=== PATIENT | male | born 1990 | race Caucasian/White ===

== ENCOUNTER 2022-07-02 18:28 | Emergency (ER) | payer OTHER, SELFPAY ==
--- NOTE | 2022-07-02 18:48 | ED.URI ---
HPI - URI/Sore Throat General Chief Complaint: Headache Stated Complaint: headache, fever Time Seen by Provider: 07/02/22 19:10 Source: patient Mode of arrival: ambulatory History of Present Illness HPI Narrative: 32-year-old male with past medical history migraines presenting to the ED complaining frontal/right sided behind eye headache x2 days. Headache not maximal at onset. Son with similar symptoms. Took Tylenol without relief. Denies neck pain, vision change/loss, CP/SOB, cough, abdominal pain, nausea/vomiting, weakness, numbness, tingling Onset (ago): day(s) Related Data Previous Rx's Medication Instructions Recorded umusgnylhi-atsgtzsbauirm-khcriazd 1 cap PO Q4-6H PRN headache #14 07/02/22 50 mg-300 mg-40 mg capsule caps (Fioricet) oseltamivir 75 mg capsule (Tamiflu) 75 mg PO Q12H 5 days #10 caps 07/02/22 Allergies Allergy/AdvReac Type Severity Reaction Status Date / Time No Known Allergies Allergy Verified 07/02/22 18:49 Review of Systems Review of Systems: Constitutional: No Fever, No Chills, No Fatigue, No Malaise ENT/Mouth: No Ear Pain, No Nasal Congestion, No Sinus Pain, No Hoarseness, No sore throat, No Rhinorrhea, No Swallowing Difficulty Eyes: No Eye Pain, No Swelling, No Redness, No Discharge, No Vision Changes Cardiovascular: No Chest Pain, No SOB, No Edema, No Palpitations Respiratory: No Cough, No Sputum, No Wheezing, No Smoke Exposure, No Dyspnea Gastrointestinal: No Nausea, No Vomiting, No Diarrhea, No Constipation, No Abdominal pain Genitourinary: No irregular bleeding, No Dysuria, No Urinary Frequency, No Hematuria, No Urinary Incontinence/retention Musculoskeletal: No joint pain, No Myalgias, No Joint Swelling Skin: No Skin Lesions, No rash Neuro: No Weakness, No Numbness, No Paresthesias, No Loss of Consciousness, No Dizziness, + Headache Yes all other systems are reviewed and are negative Constitutional: Constitutional: Reports as per [facility] Past Medical History Attestation statement: The following information was validated with the patient. Social History Social History Advance Directives: No Advance Directives Information Provided: No Physical Exam Vital Signs: Vital Signs: Last Vital Signs Temp 99.5 F 07/02/22 20:03 Pulse 91 07/02/22 20:03 Resp 16 07/02/22 20:03 BP 130/77 07/02/22 20:03 Pulse Ox 96 07/02/22 20:03 O2 Del Method 07/02/22 20:03 BMI result Body Mass Index 20.7 Const: General: cooperative, healthy appearing, no acute distress, alert, awake and Physically active Orientation/consciousness: patient oriented x3 Limitations: no limitations HEENT: Head: Yes normal to inspection and Yes atraumatic Ears: hearing grossly normal bilaterally, TM's normal bilaterally and mastoids normal General nose exam: Normal external nose present Face and sinus: Yes normal facial exam Throat: Yes posterior oropharynx normal, Yes tonsils normal, Yes uvula midline, No abnormal tonsil, No peritonsillar mass and No uvular edema Eyes: General: appearance normal, both eyes and all related structures EOM: EOMs intact bilaterally Neck: Neck: Yes normal visual inspection, Yes full ROM, Yes no lymphadenopathy and Yes no meningeal signs Resp: Effort & Inspection: normal respiratory effort and no respiratory distress Auscultation: clear to auscultation bilaterally, no crackles, no rales, no rhonchi and no wheezes Cardio: Rate: regular rate Heart sounds: S1 normal heart sound present and S2 normal heart sound present Skin: Rashes: no rashes Wounds: no wounds Neuro: General: patient oriented x3, tone normal and no meningeal signs Gait exam (Neuro): Normal gait present Extrem: General: Yes normal to inspection Course Course Course Narrative: RME--32yo M c/o frontal and right sided SIDDIQUI since last night. SIDDIQUI not maximal at onset. Took Tylenol without relief COVID/Flu/RSV & PO Fioricet and SL zofran ordered in triage -2016--influenza a positive > on re-evaluation patient reports mild symptomatic improvement Results discussed with patient including worrisome signs and symptoms and strict return precautions, and when to return to the emergency department. They verbalized understanding and feel safe for discharge at this time. Medications Administered Discontinued Medications Generic Name Dose Route Start Last Admin Trade Name Freq PRN Reason Stop Dose Admin Acetaminophen/Butalbital/Caffeine 1 tab 07/02/22 18:49 07/02/22 18:55 Butalb/Acetamin/Caff 50/325/40 Tablet PO 07/02/22 18:50 1 tab ONCE ONE Administration Ibuprofen 600 mg 07/02/22 19:17 07/02/22 19:26 Ibuprofen 600 Mg Tablet PO 07/02/22 19:18 600 mg ONCE ONE Administration Ondansetron HCl 4 mg 07/02/22 18:49 07/02/22 18:55 Ondansetron Odt 4 Mg Tab.Rapdis TRANSLINGU 07/02/22 18:50 4 mg ONCE ONE Administration MDM - URI/Sore Throat MDM Narrative Medical decision making narrative: 32-year-old male with past medical history migraines presenting to the ED complaining frontal/right sided behind eye headache x2 days. On exam low-grade temp 99.3 degrees, NAD, nontoxic appearing, no meningeal signs, no focal neuro deficits. Concern for viral illness vs migraine headache. Low suspicion for meningitis/encephalitis, CVT, SAH Plan: PO Fioricet, COVID-19/influenza/RSV testing Differential Diagnosis Differential diagnosis: Likely upper respiratory infection, viral infection, bronchitis, influenza and pharyngitis Medical Records Attestation: I reviewed the patient's medical records. Lab Data Attestation: I reviewed the patient's lab results. Labs: Lab Results 07/02/22 Range/Units 18:52 Influenza Type A (PCR) POSITIVE A (Negative) Influenza Type B (PCR) NEGATIVE (Negative) RSV RNA Qual (PCR) NEGATIVE (Negative) SARS-CoV-2 RNA (RT-PCR) NEGATIVE (Negative) Discharge Plan Discharge Clinical Impression: Influenza A Patient Disposition: Home, Self-Care Instructions: Influenza (ED) Additional Instructions: You have influenza A. Tamiflu is an antiviral medication, take as as prescribed. Continue to take Tylenol and Motrin as needed for fever/headache. Additionally Fioricet as a headache medication. Be aware Fioricet has Tylenol mixed in do not exceed 4 g of Tylenol in 1 day If her symptoms persist or worsening of fever unresolved medications, develops shortness of breath or chest pain, persistent or worsening headache return to the emergency department Tiene influenza A. Tamiflu es un medicamento antiviral, t?mcmillan seg?n lo prescrito. Contin?e tomando Tylenol y Motrin seg?n sea necesario para la fiebre o el dolor de stephanie. Adem?s, Fioricet angle medicamento para el dolor de stephanie. Tenga en cuenta que Fioricet tiene Tylenol mezclado, no exceda los 4 g de Tylenol en 1 d?a Si los s?ntomas persisten o el empeoramiento de la fiebre no se resolvi? con los medicamentos, desarrolla dificultad para respirar o dolor en el pecho, dolor de stephanie persistente o que empeora, regrese al departamento de emergencias. Prescriptions: New oseltamivir [Tamiflu] 75 mg capsule 75 mg PO Q12H 5 Days Qty: 10 0RF rdopwqqsor-yvipkkonkbkst-lvzu [Fioricet] 50-300-40 mg capsule 1 cap PO Q4-6H PRN (Reason: headache) Qty: 14 0RF Referrals: Physician,None [Primary Care Provider] - 5 days Stand Alone Forms: Work/School Release Print Language: Maori
[2022-07-02 18:51] VITALS: BP 128/87; PULSE 98; RESP 18; TEMP 37.4; O2SAT 96; BMI 20.7
[2022-07-02] MEDS: Ondansetron ODT 4 MG TAB.RAPDIS TRANSLINGU (18:55)
[2022-07-02] MEDS: Butalb/Acetamin/Caff 50/325/40 TABLET 1 TAB PO (18:55)
[2022-07-02] MEDS: Ibuprofen 600 MG TABLET PO (19:26)
[2022-07-02 19:44] LABS: Influenza A PCR POSITIVE (Negative); Influenza B PCR NEGATIVE (Negative); Resp Syncy Virus RNA Qual PCR NEGATIVE (Negative); SARS COV2 PCR INHOUSE NEGATIVE (Negative)
[2022-07-02 20:03] VITALS: BP 130/77; PULSE 91; RESP 16; TEMP 37.5; O2SAT 96
--- NOTE | 2022-07-02 20:29 | PC.NURSE ---
patient a&ox3, states he still has a headache but it has gotten a little better with the medication that was given to him, the provider is at bedside speaking with the patient, will continue to monitor
== END 2022-07-02 22:14 | disposition home or self-care (01) ==
PROVIDERS: Physician Assistant; Emergency Provider Internal Medicine
DX: J10.1 Influenza due to other identified influenza virus with other respiratory manifestations (principal); R51.9 Headache, unspecified; R50.9 Fever, unspecified; Z20.822 Contact with and (suspected) exposure to COVID-19
CPT/HCPCS: 0241U; 99283

== ENCOUNTER 2022-07-30 17:35 | Emergency (ER) | payer OTHER, SELFPAY ==
[2022-07-30 18:51] VITALS: BP 113/55; PULSE 65; RESP 16; TEMP 36.7; O2SAT 100; BMI 20.4
--- NOTE | 2022-07-30 18:53 | ED.EYEPROB ---
HPI - Eye Problem General Chief complaint: Eye Problems <APRIL Hartmann Last Filed: 07/30/22 18:54> Stated complaint: eye discomfort <APRIL Hartmann Last Filed: 07/30/22 18:54> Time Seen by Provider: 07/30/22 20:40 <APRIL Hartmann Last Filed: 07/30/22 18:54> Source: patient <APRIL Richardson Last Filed: 07/31/22 01:39> Mode of arrival: ambulatory <APRIL Richardson Last Filed: 07/31/22 01:39> Limitations: no limitations <APRIL Richardson Last Filed: 07/31/22 01:39> History of Present Illness HPI Narrative: Patient is a 32 year old assigned male at with no reported medical history presenting to the emergency department today with left eye pain. Patient states that he was working with metal yesterday and he thinks something bounced up and got in his left eye. Patient states that he rinsed them out but now he is still having left eye pain. Patient denies any dizziness, lightheadedness, abdominal pain, nausea, vomiting, fever, chills, blurry vision, double vision, loss of vision, chest pain, difficulty breathing, shortness of breath, back pain, night sweats, pain with urination, increased urinary frequency, increased urinary urgency, blood in his urine or stool, syncope or a near syncopal episode, bowel incontinence, bladder incontinence, bowel retention, bladder retention, or any other complaints at this time. <APRIL Richardson - Last Filed: 07/31/22 01:39> MD chief complaint: eye pain <APRIL Richardson Last Filed: 07/31/22 01:39> Onset (ago): day(s) (1) <APRIL Richardson Last Filed: 07/31/22 01:39> Duration: constant <APRIL Richardson Last Filed: 07/31/22 01:39> Location: left eye <APRIL Richardson Last Filed: 07/31/22 01:39> Eye Symptoms: foreign body sensation <APRIL Richardson Last Filed: 07/31/22 01:39> Severity: mild <APRIL Richardson Last Filed: 07/31/22 01:39> Severity scale (1-10): 2 <APRIL Richardson Last Filed: 07/31/22 01:39> Associated symptoms: none <APRIL Richardson Last Filed: 07/31/22 01:39> Treatments Prior to Arrival: irrigated eye <APRIL Richardson Last Filed: 07/31/22 01:39> Related Data Patient tetanus UTD: No <APRIL Richardson - Last Filed: 07/31/22 01:39> Home medications: Previous Rx's Medication Instructions Recorded jgbcamnwic-evjjnewuzxaer-wobrzatg 1 cap PO Q4-6H PRN headache #14 07/02/22 50 mg-300 mg-40 mg capsule caps (Fioricet) oseltamivir 75 mg capsule (Tamiflu) 75 mg PO Q12H 5 days #10 caps 07/02/22 erythromycin 5 mg/gram (0.5 %) eye 0.5 inch ophthalmic (eye) Q4H #3.5 07/30/22 ointment grams <APRIL Hartmann - Last Filed: 07/30/22 18:54> Allergies/adverse reactions: Allergies Allergy/AdvReac Type Severity Reaction Status Date / Time No Known Allergies Allergy Verified 07/02/22 18:49 <APRIL Hartmann - Last Filed: 07/30/22 18:54> Review of Systems Constitutional: Constitutional: Reports no additional constitutional complaints, Denies chills, Denies fever(s) and Denies night sweats <APRIL Richardson Last Filed: 07/31/22 01:39> Eyes: Eyes: Reports no additional eye complaints, Denies blurry vision, Denies change in vision, Denies diplopia, Denies eye discharge, Reports irritation, Denies loss of vision and Reports eye pain <APRIL Richardson Last Filed: 07/31/22 01:39> ENT: Denies dizziness <APRIL Richardson Last Filed: 07/31/22 01:39> Cardiovascular: Cardiovascular: Reports no additional cardiovascular complaints, Denies chest pain, Denies lightheadedness, Denies Loss of Consciousness and Denies dyspnea <APRIL Richardson - Last Filed: 07/31/22 01:39> Respiratory: Respiratory: Reports no additional respiratory complaints and Denies dyspnea <APRIL Richardson Last Filed: 07/31/22 01:39> Gastrointestinal: Gastrointestinal: Reports no additional gastrointestinal complaints, Denies abdominal pain, Denies melena, Denies hematochezia, Denies change in bowel habits and Denies change in stool character <APRIL Richardson Last Filed: 07/31/22 01:39> Genitourinary: Genitourinary: Reports no additional male genitourinary complaints, Denies hematuria, Denies oliguria, Denies difficulty urinating, Denies dysuria, Denies urinary frequency, Denies urinary hesitancy, Denies urinary incontinence and Denies urinary urgency <APRIL Richardson Last Filed: 07/31/22 01:39> Musculoskeletal: Musculoskeletal: Reports no additional musculoskeletal complaints, Denies numbness and Denies tingling <APRIL Richardson Last Filed: 07/31/22 01:39> Neurologic: Denies dizziness, Denies loss of vision, Denies numbness and Denies tingling <APRIL Richardson Last Filed: 07/31/22 01:39> Psychiatric: Psychiatric: Reports no additional psychiatric complaints <APRIL Richardson Last Filed: 07/31/22 01:39> Endocrine: Endocrine: Reports no additional endocrine complaints <APRIL Richardson Last Filed: 07/31/22 01:39> Hematologic/Lymphatic: Hematologic/Lymphatic: Reports no additional hematologic/lymphatic complaints <APRIL Richardson Last Filed: 07/31/22 01:39> Allergic/Immunologic: Allergic/Immunologic: Reports no additional allergic/immunologic complaints <APRIL Richardson Last Filed: 07/31/22 01:39> PMFSH Past Medical History Attestation statement: The following information was validated with the patient. <APRIL Richardson Last Filed: 07/31/22 01:39> Source: old records reviewed and nursing notes reviewed <APRIL Richardson Last Filed: 07/31/22 01:39> Social History Social History: Social History Advance Directives: No Advance Directives Information Provided: No <APRIL Hartmann - Last Filed: 07/30/22 18:54> Physical Exam Vital Signs: Vital Signs: Last Vital Signs Temp 98.1 F 07/30/22 19:57 Pulse 68 07/30/22 19:57 Resp 17 07/30/22 19:57 BP 118/72 07/30/22 19:57 Pulse Ox 100 07/30/22 19:57 O2 Del Method 07/30/22 19:57 BMI result Body Mass Index 20.4 <APRIL Hartmann - Last Filed: 07/30/22 18:54> Vital Signs: Last Vital Signs Temp 98.1 F 07/30/22 19:57 Pulse 68 07/30/22 19:57 Resp 17 07/30/22 19:57 BP 118/72 07/30/22 19:57 Pulse Ox 100 07/30/22 19:57 O2 Del Method 07/30/22 19:57 BMI result Body Mass Index 20.4 <APRIL Richardson - Last Filed: 07/31/22 01:39> Const: General: cooperative, no acute distress, alert and awake <APRIL Richardson - Last Filed: 07/31/22 01:39> Nutritional Appearance: well nourished <APRIL Richardson - Last Filed: 07/31/22 01:39> Orientation/consciousness: patient oriented x3 <APRIL Richardson - Last Filed: 07/31/22 01:39> Limitations: no limitations <APRIL Richardson - Last Filed: 07/31/22 01:39> HEENT: Head: Yes normal to inspection and Yes atraumatic <APRIL Richardson - Last Filed: 07/31/22 01:39> Ears: hearing grossly normal bilaterally and external ears normal <APRIL Richardson - Last Filed: 07/31/22 01:39> General nose exam: Normal external nose present, no nasal discharge noted and no epistaxis <APRIL Richardson - Last Filed: 07/31/22 01:39> Face and sinus: Yes normal facial exam, No abrasion and No laceration <APRIL Richardson - Last Filed: 07/31/22 01:39> Mouth: Normal oral and palatal mucosa present, no drooling and no muffled voice <Rondakirby Stephensonjesse DE - Last Filed: 07/31/22 01:39> Eyes: Periorbital: periorbital findings normal <Rodna Mckeon DE - Last Filed: 07/31/22 01:39> Eyelids: Yes eyelids normal <Rondakirby Stephensonjesse DE - Last Filed: 07/31/22 01:39> Conjunctivae: conjunctivae normal <Ronda Stephensonjesse DE - Last Filed: 07/31/22 01:39> Corneas: corneas abnormal on the left abrasion linear and fluorescein used <Ronda Mckeon, DE - Last Filed: 07/31/22 01:39> Pupils: Equal, round and reactive pupils present <Ronda Stephensonjesse PA - Last Filed: 07/31/22 01:39> EOM: EOMs intact bilaterally <Ronda Mike DE - Last Filed: 07/31/22 01:39> Neck: Neck: Yes normal visual inspection, Yes full ROM and Yes no lymphadenopathy <Ronda Stephensonjesse DE - Last Filed: 07/31/22 01:39> Chest: Chest palpation & inspection: normal inspection of the chest <Ronda APRIL Mckeon - Last Filed: 07/31/22 01:39> Resp: Effort & Inspection: normal respiratory effort and able to speak in complete sentences <Ronda Mike DE - Last Filed: 07/31/22 01:39> Auscultation: clear to auscultation bilaterally <Ronda Mckeon DE - Last Filed: 07/31/22 01:39> Cardio: Rate: regular rate <Ronda Mike PA - Last Filed: 07/31/22 01:39> Rhythm: regular rhythm <Ronda Mike DE - Last Filed: 07/31/22 01:39> GI: Inspection: Yes normal to inspection <APRIL Richardson - Last Filed: 07/31/22 01:39> Neuro: General: patient oriented x3 and moves all extremities <APRIL Richardson - Last Filed: 07/31/22 01:39> Cranial nerves: Yes Equal, round and reactive pupils present <Ronda Mckeon PA - Last Filed: 07/31/22 01:39> Cognition (Neuro): normal cognition <Ronda StephensonAPRIL molina - Last Filed: 07/31/22 01:39> Motor exam (neuro): 5/5 motor strength present throughout <Ronda StephensonAPRIL molina - Last Filed: 07/31/22 01:39> Sensory Exam: Normal double simultaneous stimulation for sensation <Ronda MckeonAPRIL molina - Last Filed: 07/31/22 01:39> Coordination: ewwbpz-pg-hiid test normal <Rondakirby StephensonAPRIL molina - Last Filed: 07/31/22 01:39> Extrem: General: Yes normal to inspection, Yes full ROM and Yes capillary refill normal <Rondakirby StephensonAPRIL molina - Last Filed: 07/31/22 01:39> Psych: Appearance: grossly normal <Rondakirby StephensonAPRIL molina - Last Filed: 07/31/22 01:39> Mental Status: mental status grossly normal <APRIL Richardson - Last Filed: 07/31/22 01:39> Affect: normal affect <Ronda MckeonAPRIL molina - Last Filed: 07/31/22 01:39> Attitude: cooperative <APRIL Richardson - Last Filed: 07/31/22 01:39> Thought process: Normal thought process present <APRIL Richardson - Last Filed: 07/31/22 01:39> Thought content: Normal thought content present <APRIL Richardson - Last Filed: 07/31/22 01:39> Insight: Good insight present (Psych) <APRIL Richardson - Last Filed: 07/31/22 01:39> Course Course Course Narrative: RME18:55PM - 32-year-old male who is Somali-speaking presenting to the ED with his at bedside with complaints of a possible foreign body to the left eye that started yesterday when he was at home. He is unsure what got into his eye. He reports he is up-to-date on tetanus. He reports watery drainage and blurry vision. Good he denies any other symptoms complaints or concerns at this time. Plan: Patient will go to [facility] [place] for eye evaluation for possible foreign body. <APRIL Hartmann - Last Filed: 07/30/22 18:54> Medications Administered Discontinued Medications Generic Name Dose Route Start Last Admin Trade Name Freq PRN Reason Stop Dose Admin Diphtheria/Tetanus/Acell Pertussis 0.5 ml 07/30/22 21:29 07/30/22 21:51 Diphth,Pertus(Acell),Tet Adult 0.5 Ml Syringe IM 07/30/22 21:30 0.5 ml .ONCE ONE Administration <APRIL Hartmann - Last Filed: 07/30/22 18:54> Medications Administered Discontinued Medications Generic Name Dose Route Start Last Admin Trade Name Freq PRN Reason Stop Dose Admin Diphtheria/Tetanus/Acell Pertussis 0.5 ml 07/30/22 21:29 07/30/22 21:51 Diphth,Pertus(Acell),Tet Adult 0.5 Ml Syringe IM 07/30/22 21:30 0.5 ml .ONCE ONE Administration <APRIL Richardson - Last Filed: 07/31/22 01:39> Medical Decision Making Medical Decision Making MDM Narrative: Patient is a 32 year old assigned male at with no reported medical history presenting to the emergency department today with a foreign body sensation in the left eye. Patient's physical exam showed a left corneal abrasion. No rust ring and no foreign body present in either eye. I explained my physical exam findings to the patient. I answered all questions asked by the patient. I stressed the importance of the patient taking his medication as prescribed. I stressed the importance of the patient following up with his primary care provider and an military communications specialist. I stressed the importance of the patient returning to the emergency department immediately if his symptoms were to worsen or if he were to develop any dizziness, shortness of breath, difficulty breathing, chest pain, blurry vision, loss of vision, nausea, vomiting, abdominal pain, fever, chills, back pain, or any other complaints. Patient verbalized agreement and understanding with this treatment plan and discharge. <APRIL Richardson - Last Filed: 07/31/22 01:39> Differential Diagnosis Differential Diagnoses: The differential diagnosis associated with the presentation includes <APRIL Richardson - Last Filed: 07/31/22 01:39> corneal abrasion <APRIL Richardson - Last Filed: 07/31/22 01:39> Discharge Plan Discharge Clinical Impression: Corneal abrasion <APRIL Hartmann - Last Filed: 07/30/22 18:54> Patient Disposition: Home, Self-Care <APRIL Hartmann Last Filed: 07/30/22 18:54> Instructions: Corneal Abrasion (ED) <APRIL Hartmann Last Filed: 07/30/22 18:54> Additional Instructions: Follow up with your primary care provider and an military communications specialist. Return to the emergency department immediately if your symptoms worsen or if you develop any dizziness, shortness of breath, difficulty breathing, chest pain, blurry vision, loss of vision, nausea, vomiting, abdominal pain, fever, chills, back pain, or any other complaints. Anna un seguimiento con knox proveedor de atenci?n primaria y un oftalm?logo. Regrese al departamento de emergencias de inmediato si cleopatra s?ntomas empeoran o si presenta mareos, falta de aire, dificultad para respirar, dolor de pecho, visi?n borrosa, p?rdida de la visi?n, n?useas, v?mitos, dolor abdominal, fiebre, escalofr?os, dolor de espalda o cualquier otras quejas. <APRIL Hartmann Last Filed: 07/30/22 18:54> Prescriptions: New erythromycin 5 mg/gram (0.5 %) ointment 0.5 inch ophthalmic (eye) Q4H Qty: 3.5 0RF No Action oseltamivir [Tamiflu] 75 mg capsule 75 mg PO Q12H 5 Days Qty: 10 0RF qgvoamnayp-yaldynggvpeth-ezaq [Fioricet] 50-300-40 mg capsule 1 cap PO Q4-6H PRN (Reason: headache) Qty: 14 0RF <APRIL Hartmann Last Filed: 07/30/22 18:54> Referrals: [facility] [place] Family Medicine [Provider Group] (Call to establish and follow up with a primary care provider. If you already have a primary care provider, please follow up with them. Llame para establecer y hacer un seguimiento con un proveedor de atenci?n primaria. Si ya tiene un proveedor de atenci?n primaria, anna un seguimiento con ?l.) [facility] [place] Primary CareJose [Provider Group] (Call to establish and follow up with a primary care provider. If you already have a primary care provider, please follow up with them. Llame para establecer y hacer un seguimiento con un proveedor de atenci?n primaria. Si ya tiene un proveedor de atenci?n primaria, anna un seguimiento con ?l.) [facility] [place] Primary CareCristina [Provider Group] (Call to establish and follow up with a primary care provider. If you already have a primary care provider, please follow up with them. Llame para establecer y hacer un seguimiento con un proveedor de atenci?n primaria. Si ya tiene un proveedor de atenci?n primaria, anna un seguimiento con ?l.) Óscar Mclain [Physician] - (Call to establish and follow up with an military communications specialist. Llame para establecer y hacer un seguimiento con un oftalm?logo.) <APRIL Hartmann - Last Filed: 07/30/22 18:54> Stand Alone Forms: Work/School Release <APRIL Hartmann - Last Filed: 07/30/22 18:54> Interventions: ED Discharge Assessment Last Done: 07/30/22 21:57 <APRIL Hartmann - Last Filed: 07/30/22 18:54> Discharge Date/Time: 07/30/22 21:57 <APRIL Hartmann - Last Filed: 07/30/22 18:54> Print Language: Somali <APRIL Hartmann - Last Filed: 07/30/22 18:54>
[2022-07-30 19:57] VITALS: BP 118/72; PULSE 68; RESP 17; TEMP 36.7; O2SAT 100
[2022-07-30] MEDS: Diphth,Pertus(ACell),Tet Adult 0.5 ML SYRINGE IM (21:51)
== END 2022-07-30 21:57 | disposition home or self-care (01) ==
PROVIDERS: Emergency Provider Emergency Medicine
DX: S05.02XA Injury of conjunctiva and corneal abrasion without foreign body, left eye, initial encounter (principal); X58.XXXA Exposure to other specified factors, initial encounter; Y93.9 Activity, unspecified; Y92.9 Unspecified place or not applicable; Y99.9 Unspecified external cause status
CPT/HCPCS: 90471; 90715; 99283; 99284